=== PATIENT | male | born 1960 | race Caucasian/White ===

== ENCOUNTER 2017-02-27 04:52 | Inpatient (IN) | payer BC ==
[~2017-02-27] VITALS: Ht 182.9 cm; Wt 81.2 kg
[2017-02-27] MEDS ORDERED: IV NORMAL SALINE 1000ML BAG 1,000 ML IV ONE (05:45)
[2017-02-27] MEDS ORDERED: ONDANSETRON PF 4 MG/2 ML VIAL. IV ONE (05:45)
[2017-02-27] MEDS ORDERED: HYDROmorphone 2 MG/ML VIAL IV ONE (05:45)
[2017-02-27] MEDS ORDERED: AMPICILLIN/SULBACTAM 3 GM in IV NORMAL SALINE 100ML 100 ML IV ONE (06:00)
[2017-02-27 06:11] LABS: BASO # 0.1 x10^3/uL (0.0-0.2); BASO % 1 % (0-3); EOS % 1 % (0-3); HEMATOCRIT 45.9 % (39.0-53.0); HEMOGLOBIN 16.3 g/dL (13.0-17.5); LYMPH # 1.2 x10^3/uL (1.0-4.8); LYMPH % 16 % (24-48); MEAN CORPUSCULAR HEMOGLOBIN 36 pg (25-35); MEAN CORPUSCULAR HGB CONC 35 g/dL (31-37); MEAN CORPUSCULAR VOLUME 100 fL (79-100); MONO % 10 % (0-9); NEUT % 72 % (31-73); PLATELET COUNT 186 x10^3/uL (140-400); RED BLOOD COUNT 4.57 x10^6/uL (4.30-5.70); RED CELL DISTRIBUTION WIDTH 13.5 % (11.5-14.5); WHITE BLOOD COUNT 7.8 x10^3/uL (4.0-11.0)
[2017-02-27] MEDS ORDERED: CONTRAST GIVEN MC PRN (06:15)
[2017-02-27] MEDS ORDERED: IOHEXOL 300 MG/ML 75 ML VIAL IV ONE (06:15)
[2017-02-27 06:20] LABS: CALCIUM 9.4 mg/dL (8.5-10.1); GFR 78.2; POTASSIUM 3.3 mmol/L (3.5-5.1)
[2017-02-27 06:25] LABS: ALBUMIN 3.8 g/dL (3.4-5.0); TOTAL BILIRUBIN 0.8 mg/dL (0.2-1.0); TOTAL PROTEIN 7.7 g/dL (6.4-8.2)
[2017-02-27] MEDS ORDERED: ONDANSETRON PF 4 MG/2 ML VIAL. IV PRN ×3 (06:30→09:00)
[2017-02-27] MEDS ORDERED: MORPHINE SULFATE 2 MG/ML DISP.SYRIN. IV PRN ×2 (06:30→09:00)
--- NOTE | 2017-02-27 06:41 | PHYS DOC ---
Past Medical History Past Medical History: Hypertension Past Surgical History: Other Additional Past Surgical Histo: BI LAT KNEES, HANDS, FEET, LT ARM, RT ANKLE, FACIAL Alcohol Use: Heavy Additional Information: PT STATES THAT HE NORMALLY DRINKS 2-3 MIXED DRINKS A DAY AND A BEER WITH DINNER. Drug Use: None Adult General Chief Complaint Chief Complaint: RECTAL ABSCESS HPI HPI 55-year-old male presenting to the emergency department today after having a pain and fullness in his rectum for the past 3 days. He reports the pain that is mild to moderate intermittent nonradiating and without alleviating factors. He reports straining with defecation. He denies any blood in his stool. He denies fevers at home. Review of systems is negative for abdominal pain nausea vomiting diarrhea fevers or chills. All other review of systems is negative unless otherwise noted in history of present illness. ED course: 55-year-old gentleman presenting to the emergency department today with a rectal abscess. Vital signs show mild chronic hypertension otherwise unremarkable. Afebrile. Pertinent physical examination findings show the patient have a fullness of the rectum consistent with a rectal abscess. The patient was given IV antibiotics. I discussed the case with Dr. Ventura our surgeon who agreed to see the patient in consultation. The patient was admitted to our hospital for further evaluation workup and care. Review of Systems Review of Systems SEE ABOVE. Current Medications Current Medications Current Medications Medications (Trade) Dose Ordered Sig/Herson Start Time Stop Time Status Last Admin Dose Admin Ampicillin Sodium/ Sulbactam Sodium 3 gm/Sodium Chloride 100 ml @ 200 mls/hr 1X ONCE 02/27/17 06:00 02/27/17 06:29 DC 02/27/17 06:06 200 MLS/HR Hydromorphone HCl (Dilaudid) 1 mg 1X ONCE 02/27/17 05:45 02/27/17 05:46 DC 02/27/17 06:06 1 MG Info (Do NOT chart on this entry -- for MONITORING) 1 each PRN DAILY PRN 02/27/17 06:15 03/01/17 06:14 Iohexol (Omnipaque 300 Mg/ml) 75 ml 1X ONCE 02/27/17 06:15 02/27/17 06:16 DC Ondansetron HCl (Zofran) 4 mg 1X ONCE 02/27/17 05:45 02/27/17 05:46 DC 02/27/17 06:06 4 MG Sodium Chloride 1,000 ml @ 1,000 mls/hr 1X ONCE 02/27/17 05:45 02/27/17 06:44 02/27/17 06:07 1,000 MLS/HR Allergies Allergies Allergies Coded Allergies Type Severity Reaction Last Updated Verified peanut Allergy Unknown 02/27/17 Yes Physical Exam Physical Exam SEE ABOVE Constitutional: Well developed, well nourished, no acute distress, non-toxic appearance. [] HENT: Normocephalic, atraumatic, bilateral external ears normal, oropharynx moist, no oral exudates, nose normal. [] Eyes: PERRLA, EOMI, conjunctiva normal, no discharge. [] Neck: Normal range of motion, no tenderness, supple, no stridor. [] Cardiovascular:Heart rate regular rhythm, no murmur [] Lungs & Thorax: Bilateral breath sounds clear to auscultation [] Abdomen: Bowel sounds normal, soft, no tenderness, no masses, no pulsatile masses. Rectal exam, the patient has severe tenesmus and pain on rectal exam with a fullness of the rectum. Consistent with abscess with rectal involvement. Nonbloody stool. Skin: Warm, dry, no erythema, no rash. [] Back: No tenderness, no CVA tenderness. [] Extremities: No tenderness, no cyanosis, no clubbing, ROM intact, no edema. [] Neurologic: Alert and oriented X 3, normal motor function, normal sensory function, no focal deficits noted. [] Psychologic: Affect normal, judgement normal, mood normal. [] Current Patient Data Vital Signs Vital Signs Date Time Temp Pulse Resp B/P (MAP) Pulse Ox O2 Delivery O2 Flow Rate FiO2 02/27/17 06:06 18 Room Air 02/27/17 06:00 69 126/79 (95) 96 02/27/17 04:58 97.9 97.9 Lab Values Laboratory Tests Test 02/27/17 05:45 White Blood Count 7.8 x10^3/uL (4.0-11.0) Red Blood Count 4.57 x10^6/uL (4.30-5.70) Hemoglobin 16.3 g/dL (13.0-17.5) Hematocrit 45.9 % (39.0-53.0) Mean Corpuscular Volume 100 fL (79-100) Mean Corpuscular Hemoglobin 36 pg (25-35) H Mean Corpuscular Hemoglobin Concent 35 g/dL (31-37) Red Cell Distribution Width 13.5 % (11.5-14.5) Platelet Count 186 x10^3/uL (140-400) Neutrophils (%) (Auto) 72 % (31-73) Lymphocytes (%) (Auto) 16 % (24-48) L Monocytes (%) (Auto) 10 % (0-9) H Eosinophils (%) (Auto) 1 % (0-3) Basophils (%) (Auto) 1 % (0-3) Neutrophils # (Auto) 5.6 x10^3uL (1.8-7.7) Lymphocytes # (Auto) 1.2 x10^3/uL (1.0-4.8) Monocytes # (Auto) 0.8 x10^3/uL (0.0-1.1) Eosinophils # (Auto) 0.1 x10^3/uL (0.0-0.7) Basophils # (Auto) 0.1 x10^3/uL (0.0-0.2) Laboratory Tests 02/27/17 05:45 EKG EKG [] Radiology/Procedures Radiology/Procedures [] Course & Med Decision Making Course & Med Decision Making Pertinent Labs and Imaging studies reviewed. (See chart for details) [] Dragon Disclaimer Dragon Disclaimer This electronic medical record was generated, in whole or in part, using a voice recognition dictation system. Departure Departure Impression: Primary Impression: Rectal abscess Disposition: ADMITTED INPATIENT Admitting Physician: Carlos Lyn Condition: STABLE Referrals: NO PCP (PCP) JAMES CALHOUN MD Feb 27, 2017 06:41
--- NOTE | 2017-02-27 07:35 | RAD ---
Indication right anal pain going into the low back. Assess for potential abscess. Axial images through the abdomen and pelvis were obtained. Approximately 75 cc of Omnipaque 300 was administered intravenously. No oral contrast was administered. No prior imaging is available. The lung bases are clear. The liver and spleen appear normal and the gallbladder appears grossly unremarkable. No pancreatic abnormality is seen. No adrenal or renal anomalies are seen and acute finding in the abdomen is not apparent. In the pelvis no focal mass or inflammatory process is seen. Immediately adjacent to the right anal verge is a suggested soft tissue mass measuring approximately 3.5 x 3 cm. This may reflect an inflammatory focus, small abscess. Correlation with physical exam advised. Significant surrounding inflammatory changes are not seen in the immediately adjacent soft tissues. IMPRESSION: Suggested soft tissue mass adjacent to the right rectum which may reflect an abscess. No additional finding seen in the abdomen or pelvis.
[2017-02-27 08:06] VITALS: BP 138/81
[2017-02-27] MEDS ORDERED: ONDA4TAB12 PO (08:32)
[2017-02-27] MEDS ORDERED: AMOX500C PO (08:32)
[2017-02-27] MEDS ORDERED: METO50TA2 PO (08:32)
[2017-02-27] MEDS ORDERED: LISI-334 PO (08:32)
[2017-02-27] MEDS ORDERED: HYDROcodone/APAP 5/325MG 1 TAB TABLET PO PRN (08:45)
[2017-02-27] MEDS ORDERED: ACETAMINOPHEN 500 MG TABLET PO PRN (08:45)
[2017-02-27] MEDS ORDERED: IV RINGERS,LACTATED 1000ML 1,000 ML IV SCH (08:49)
[2017-02-27] MEDS ORDERED: LIDOCAINE 1% 1 ML SYRINGE. ID PRN (09:00)
[2017-02-27] MEDS ORDERED: fentaNYL PF VIAL 100 MCG/2 ML VIAL IV PRN (09:00)
[2017-02-27] MEDS: LISINOPRIL 20 MG TABLET PO SCH (09:00)
[2017-02-27] MEDS ORDERED: PROCHLORPERAZINE 10 MG/2 ML VIAL. IV PRN (09:00)
[2017-02-27] MEDS ORDERED: AMPICILLIN/SULBACTAM 1.5 GM in IV NORMAL SALINE 50ML 50 ML IV SCH (09:00)
--- NOTE | 2017-02-27 09:44 | PDOC2 ---
SOMMER CARPENTER CH[employer]NAGEMENT LEAD 02/27/17 0944: CONSULT Date of Consult Date of Consult DATE: 02/27/17 TIME: 09:36 Reason for Consult Reason for Consult: rectal abscess Referring Physician Referring Physician: ER Identification/Chief Complaint Chief Complaint rectal pain Problems: Source Source: Chart review, Patient History of Present Illness Reason for Visit: 4-5 day history of rectal pain, denies drainage. yesterday the pain was better , then had BM and extreme pain again. No history of abscess in past Currently on augmentin for dental implant procedure planned Past Medical History Cardiovascular: HTN Past Surgical History Past Surgical History: Other (mulitple bone/joint surgeries ) Family History Family History: Other (noncontributory to current illness ) Social History <1 pack per day ALCOHOL: heavy Drugs: None Lives: with Family Current Medications Current Medications Current Medications Ondansetron HCl (Zofran) 4 mg 1X ONCE IV Last administered on 02/27/17 06:06 ; Start 02/27/17 at 05:45; Stop 02/27/17 at 05:46; Status DC Hydromorphone HCl (Dilaudid) 1 mg 1X ONCE IV Last administered on 02/27/17 06 :06; Start 02/27/17 at 05:45; Stop 02/27/17 at 05:46; Status DC Sodium Chloride 1,000 ml @ 1,000 mls/hr 1X ONCE IV Last administered on 06:07; Start 02/27/17 at 05:45; Stop 02/27/17 at 06:44; Status DC Ampicillin Sodium/ Sulbactam Sodium 3 gm/Sodium Chloride 100 ml @ 200 mls/hr 1X ONCE IV Last administered on 02/27/17 06:06; Start 02/27/17 at 06:00; Stop 02/27/17 at 06:29; Status DC Iohexol (Omnipaque 300 Mg/ml) 75 ml 1X ONCE IV Last administered on 02/27/17 06:54; Start 02/27/17 at 06:15; Stop 02/27/17 at 06:16; Status DC Info (Do NOT chart on this entry -- for MONITORING) 1 each PRN DAILY PRN MC SEE COMMENTS; Start 02/27/17 at 06:15; Stop 03/01/17 at 06:14 Ondansetron HCl (Zofran) 4 mg PRN Q8HRS PRN IV NAUSEA/VOMITING; Start 02/27/17 at 06:30; Stop 02/27/17 at 08:38; Status DC Morphine Sulfate 2 mg PRN Q2HR PRN IV PAIN; Start 02/27/17 at 06:30; Stop 02/28 at 06:29 Sodium Chloride 1,000 ml @ 125 mls/hr Q8H IV ; Start 02/27/17 at 06:30; Stop at 06:29 Ondansetron HCl (Zofran) 4 mg PRN Q6HRS PRN IV NAUSEA/VOMITING; Start 02/27/17 at 08:34; Stop 02/28/17 at 08:33 Acetaminophen (Tylenol) 500 mg PRN Q6HRS PRN PO MILD PAIN / TEMP; Start at 08:45 Ampicillin Sodium/ Sulbactam Sodium 1.5 gm/Sodium Chloride 50 ml @ 100 mls/hr Q6H IV ; Start 02/27/17 at 09:00 Acetaminophen/ Hydrocodone Bitart (Lortab 5/325) 1 tab PRN Q4HRS PRN PO PAIN; Start 02/27/17 at 08:45 Lisinopril (Prinivil) 20 mg DAILY PO ; Start 02/27/17 at 09:00 Metoprolol Tartrate (Lopressor) 50 mg BID PO ; Start 02/27/17 at 09:00 Ondansetron HCl (Zofran) 4 mg PRN Q6HRS PRN IV NAUSEA/VOMITING; Start 02/27/17 at 09:00; Stop 02/27/17 at 19:00 Fentanyl Citrate (Fentanyl 2ml Vial) 25 mcg PRN Q5MIN PRN IV MILD PAIN; Start 02/27/17 at 09:00; Stop 02/27/17 at 19:00 Fentanyl Citrate (Fentanyl 2ml Vial) 50 mcg PRN Q5MIN PRN IV MODERATE PAIN; Start 02/27/17 at 09:00; Stop 02/27/17 at 19:00 Morphine Sulfate 1 mg PRN Q10MIN PRN IV SEVERE PAIN; Start 02/27/17 at 09:00; Stop 02/27/17 at 19:00 Ringer's Solution 1,000 ml @ 30 mls/hr Q24H IV ; Start 02/27/17 at 08:49; Stop 02/27/17 at 20:48 Lidocaine HCl 2 ml PRN 1X PRN ID PRIOR TO IV START; Start 02/27/17 at 09:00; Stop 02/27/17 at 19:00 Hydromorphone HCl (Dilaudid) 0.5 mg PRN Q10MIN PRN IV SEV PAIN, Second choice; Start 02/27/17 at 09:00; Stop 02/27/17 at 19:00 Prochlorperazine Edisylate (Compazine) 5 mg PACU PRN PRN IV NAUSEA, MRX1; Start 02/27/17 at 09:00; Stop 02/27/17 at 19:00 Active Scripts Active Reported Ondansetron Odt (Ondansetron) 4 Mg Tab.rapdis 8 Mg PO TID PRN Amoxicillin 500 Mg Capsule 1 Cap PO BID Metoprolol Tartrate 50 Mg Tablet 1 Tab PO BID Lisinopril 20 Mg Tablet 1 Tab PO DAILY Allergies Allergies: Coded Allergies: peanut (Verified Allergy, Unknown, 02/27/17) ROS General: YES: Chills, Other (+ fevers subjective) PSYCHOLOGICAL ROS: No: Anxiety, Depression Eyes: No Blurry vision, No Double vision HEENT: No: Heacaches, Sore Throat Hematological and Lymphatic: No: Bleeding Problems, Blood Clots Respiratory: No: Cough, Shortness of breath Cardiovascular: No Chest Pain, No Palpitations Gastrointestinal: Yes Constipation, No Abdominal Pain Genitourinary: No Frequency, No Hematuria Musculoskeletal: No Joint Pain, No Muscle Pain Neurological: No Impaired Coord/balance, No Seizures Skin: No Pruritus, No Rash Physical Exam Physical Exam limited rectal exam--patient very tender with mild palpation to right rectal area--did not examine in depth due to pain , some fullness noted to right rectal area--no induration or erythema General: Alert, Oriented X3, Cooperative, No acute distress HEENT: PERRLA, Mucous membr. moist/pink Heart: Regular rate, Normal S1, Normal S2 Abdomen: Soft, No tenderness Extremities: No clubbing, No cyanosis Skin: No rashes, No breakdown Neuro: Normal speech, Sensation intact Psych/Mental Status: Mental status NL, Mood NL MUSCULOSKELETAL: No deformity, No swelling Vitals VITALS Vital Signs Date Time Temp Pulse Resp B/P (MAP) Pulse Ox O2 Delivery O2 Flow Rate FiO2 02/27/17 08:33 Room Air 02/27/17 08:06 98.1 70 18 138/81 (100) 97 98.1 Labs Labs Laboratory Tests Test 02/27/17 05:45 White Blood Count 7.8 x10^3/uL (4.0-11.0) Red Blood Count 4.57 x10^6/uL (4.30-5.70) Hemoglobin 16.3 g/dL (13.0-17.5) Hematocrit 45.9 % (39.0-53.0) Mean Corpuscular Volume 100 fL (79-100) Mean Corpuscular Hemoglobin 36 pg (25-35) Mean Corpuscular Hemoglobin Concent 35 g/dL (31-37) Red Cell Distribution Width 13.5 % (11.5-14.5) Platelet Count 186 x10^3/uL (140-400) Neutrophils (%) (Auto) 72 % (31-73) Lymphocytes (%) (Auto) 16 % (24-48) Monocytes (%) (Auto) 10 % (0-9) Eosinophils (%) (Auto) 1 % (0-3) Basophils (%) (Auto) 1 % (0-3) Neutrophils # (Auto) 5.6 x10^3uL (1.8-7.7) Lymphocytes # (Auto) 1.2 x10^3/uL (1.0-4.8) Monocytes # (Auto) 0.8 x10^3/uL (0.0-1.1) Eosinophils # (Auto) 0.1 x10^3/uL (0.0-0.7) Basophils # (Auto) 0.1 x10^3/uL (0.0-0.2) Sodium Level 139 mmol/L (136-145) Potassium Level 3.3 mmol/L (3.5-5.1) Chloride Level 100 mmol/L (98-107) Carbon Dioxide Level 27 mmol/L (21-32) Anion Gap 12 (6-14) Blood Urea Nitrogen 15 mg/dL (8-26) Creatinine 1.0 mg/dL (0.7-1.3) Estimated GFR (Cockcroft-Gault) 78.2 BUN/Creatinine Ratio 15 (6-20) Glucose Level 110 mg/dL (70-99) Lactic Acid Level 1.8 mmol/L (0.4-2.0) Calcium Level 9.4 mg/dL (8.5-10.1) Total Bilirubin 0.8 mg/dL (0.2-1.0) Aspartate Amino Transf (AST/SGOT) 28 U/L (15-37) Alanine Aminotransferase (ALT/SGPT) 43 U/L (16-63) Alkaline Phosphatase 90 U/L (46-116) Total Protein 7.7 g/dL (6.4-8.2) Albumin 3.8 g/dL (3.4-5.0) Albumin/Globulin Ratio 1.0 (1.0-1.7) Laboratory Tests Test 02/27/17 05:45 White Blood Count 7.8 x10^3/uL (4.0-11.0) Red Blood Count 4.57 x10^6/uL (4.30-5.70) Hemoglobin 16.3 g/dL (13.0-17.5) Hematocrit 45.9 % (39.0-53.0) Mean Corpuscular Volume 100 fL (79-100) Mean Corpuscular Hemoglobin 36 pg (25-35) Mean Corpuscular Hemoglobin Concent 35 g/dL (31-37) Red Cell Distribution Width 13.5 % (11.5-14.5) Platelet Count 186 x10^3/uL (140-400) Neutrophils (%) (Auto) 72 % (31-73) Lymphocytes (%) (Auto) 16 % (24-48) Monocytes (%) (Auto) 10 % (0-9) Eosinophils (%) (Auto) 1 % (0-3) Basophils (%) (Auto) 1 % (0-3) Neutrophils # (Auto) 5.6 x10^3uL (1.8-7.7) Lymphocytes # (Auto) 1.2 x10^3/uL (1.0-4.8) Monocytes # (Auto) 0.8 x10^3/uL (0.0-1.1) Eosinophils # (Auto) 0.1 x10^3/uL (0.0-0.7) Basophils # (Auto) 0.1 x10^3/uL (0.0-0.2) Sodium Level 139 mmol/L (136-145) Potassium Level 3.3 mmol/L (3.5-5.1) Chloride Level 100 mmol/L (98-107) Carbon Dioxide Level 27 mmol/L (21-32) Anion Gap 12 (6-14) Blood Urea Nitrogen 15 mg/dL (8-26) Creatinine 1.0 mg/dL (0.7-1.3) Estimated GFR (Cockcroft-Gault) 78.2 BUN/Creatinine Ratio 15 (6-20) Glucose Level 110 mg/dL (70-99) Lactic Acid Level 1.8 mmol/L (0.4-2.0) Calcium Level 9.4 mg/dL (8.5-10.1) Total Bilirubin 0.8 mg/dL (0.2-1.0) Aspartate Amino Transf (AST/SGOT) 28 U/L (15-37) Alanine Aminotransferase (ALT/SGPT) 43 U/L (16-63) Alkaline Phosphatase 90 U/L (46-116) Total Protein 7.7 g/dL (6.4-8.2) Albumin 3.8 g/dL (3.4-5.0) Albumin/Globulin Ratio 1.0 (1.0-1.7) Assessment/Plan Assessment/Plan rectal pain, CT with mass vs abscess--very tender on exam tobaccoism, alcohol use daily reviewed with lolis Curtis EUA, possible I&D YAEL CORBIN MD 02/27/17 1317: CONSULT Allergies Allergies: Coded Allergies: peanut (Verified Allergy, Unknown, 02/27/17) Assessment/Plan Assessment/Plan pt seen, interviewed and examined agree with above to OR for I&D explained risks to Catrachito and his including but not limited to bleeding, infection or recurrence. he edwin proceed Thanks for consult SOMMER CARPENTER APRN Feb 27, 2017 09:44 YAEL CORBIN MD Feb 27, 2017 13:17
[2017-02-27] MEDS: METOPROLOL TART IMMED RELEASE 50 MG TABLET. PO SCH ×2 (10:06→19:44)
[2017-02-27] MEDS: IV NORMAL SALINE 1000ML BAG 1,000 ML IV SCH ×3 (10:07→23:50)
--- NOTE | 2017-02-27 10:47 | PDOC1 ---
History and Physical Date of Admission Date of Admission DATE: 02/27/17 TIME: 10:41 Identification/Chief Complaint Chief Complaint rectal pain Problems: Source Source: Caregiver, Chart review, Patient History of Present Illness History of Present Illness 55 y.o male with no signif past medical, 4-5 day hx rectal pain, no drainage, admits to constipation. Rectal abscess on PE and on CT. GS consulted, planned for drainage, AHs been taking amox (i thought initially for rectal but now notes about dental implant),. Got unasyn at ER, reviewed lit, can do unasyn, flagyl, clinda are some options, Denies fever. NOrmal white ct K slightly low at 3.3 Past Medical History Cardiovascular: HTN Past Surgical History Past Surgical History: Other (mulitple bone/joint surgeries ) Family History Family History: Hypertension, Other (noncontributory to current illness ) Social History Smoke: No ALCOHOL: none Drugs: None Current Medications Current Medications Current Medications Ondansetron HCl (Zofran) 4 mg 1X ONCE IV Last administered on 02/27/17 06:06 ; Start 02/27/17 at 05:45; Stop 02/27/17 at 05:46; Status DC Hydromorphone HCl (Dilaudid) 1 mg 1X ONCE IV Last administered on 02/27/17 06 :06; Start 02/27/17 at 05:45; Stop 02/27/17 at 05:46; Status DC Sodium Chloride 1,000 ml @ 1,000 mls/hr 1X ONCE IV Last administered on 06:07; Start 02/27/17 at 05:45; Stop 02/27/17 at 06:44; Status DC Ampicillin Sodium/ Sulbactam Sodium 3 gm/Sodium Chloride 100 ml @ 200 mls/hr 1X ONCE IV Last administered on 02/27/17 06:06; Start 02/27/17 at 06:00; Stop 02/27/17 at 06:29; Status DC Iohexol (Omnipaque 300 Mg/ml) 75 ml 1X ONCE IV Last administered on 02/27/17 06:54; Start 02/27/17 at 06:15; Stop 02/27/17 at 06:16; Status DC Info (Do NOT chart on this entry -- for MONITORING) 1 each PRN DAILY PRN MC SEE COMMENTS; Start 02/27/17 at 06:15; Stop 03/01/17 at 06:14 Ondansetron HCl (Zofran) 4 mg PRN Q8HRS PRN IV NAUSEA/VOMITING; Start 02/27/17 at 06:30; Stop 02/27/17 at 08:38; Status DC Morphine Sulfate 2 mg PRN Q2HR PRN IV PAIN; Start 02/27/17 at 06:30; Stop 02/28 at 06:29 Sodium Chloride 1,000 ml @ 125 mls/hr Q8H IV Last administered on 02/27/17 10 :07; Start 02/27/17 at 06:30; Stop 02/28/17 at 06:29 Ondansetron HCl (Zofran) 4 mg PRN Q6HRS PRN IV NAUSEA/VOMITING; Start 02/27/17 at 08:34; Stop 02/28/17 at 08:33 Acetaminophen (Tylenol) 500 mg PRN Q6HRS PRN PO MILD PAIN / TEMP; Start at 08:45 Ampicillin Sodium/ Sulbactam Sodium 1.5 gm/Sodium Chloride 50 ml @ 100 mls/hr Q6H IV ; Start 02/27/17 at 09:00; Stop 02/27/17 at 09:51; Status DC Acetaminophen/ Hydrocodone Bitart (Lortab 5/325) 1 tab PRN Q4HRS PRN PO PAIN; Start 02/27/17 at 08:45 Lisinopril (Prinivil) 20 mg DAILY PO ; Start 02/27/17 at 09:00 Metoprolol Tartrate (Lopressor) 50 mg BID PO Last administered on 02/27/17 10: 06; Start 02/27/17 at 09:00 Ondansetron HCl (Zofran) 4 mg PRN Q6HRS PRN IV NAUSEA/VOMITING; Start 02/27/17 at 09:00; Stop 02/27/17 at 19:00 Fentanyl Citrate (Fentanyl 2ml Vial) 25 mcg PRN Q5MIN PRN IV MILD PAIN; Start 02/27/17 at 09:00; Stop 02/27/17 at 19:00 Fentanyl Citrate (Fentanyl 2ml Vial) 50 mcg PRN Q5MIN PRN IV MODERATE PAIN; Start 02/27/17 at 09:00; Stop 02/27/17 at 19:00 Morphine Sulfate 1 mg PRN Q10MIN PRN IV SEVERE PAIN; Start 02/27/17 at 09:00; Stop 02/27/17 at 19:00 Ringer's Solution 1,000 ml @ 30 mls/hr Q24H IV ; Start 02/27/17 at 08:49; Stop 02/27/17 at 20:48 Lidocaine HCl 2 ml PRN 1X PRN ID PRIOR TO IV START; Start 02/27/17 at 09:00; Stop 02/27/17 at 19:00 Hydromorphone HCl (Dilaudid) 0.5 mg PRN Q10MIN PRN IV SEV PAIN, Second choice; Start 02/27/17 at 09:00; Stop 02/27/17 at 19:00 Prochlorperazine Edisylate (Compazine) 5 mg PACU PRN PRN IV NAUSEA, MRX1; Start 02/27/17 at 09:00; Stop 02/27/17 at 19:00 Ampicillin Sodium/ Sulbactam Sodium 1.5 gm/Sodium Chloride 50 ml @ 100 mls/hr Q6H IV ; Start 02/27/17 at 12:00 Active Scripts Active Reported Ondansetron Odt (Ondansetron) 4 Mg Tab.rapdis 8 Mg PO TID PRN Amoxicillin 500 Mg Capsule 1 Cap PO BID Metoprolol Tartrate 50 Mg Tablet 1 Tab PO BID Lisinopril 20 Mg Tablet 1 Tab PO DAILY Allergies Allergies: Coded Allergies: peanut (Verified Allergy, Unknown, 02/27/17) ROS Review of System rectal pain, all else is neg Physical Exam General: Alert, Oriented X3, Cooperative, No acute distress HEENT: PERRLA Lungs: Clear to auscultation, Normal air movement Heart: S1S2, RRR, no thrills, no rubs Cardiovascular: S1, S2 Abdomen: Normal bowel sounds, Soft, No tenderness, No hepatosplenomegaly, No masses Male Genitals Exam: other (tender fluctaunt area near rectum,, ) Rectal Exam: other (as above) PELVIC: Nml ext genitalia Extremities: No clubbing, No cyanosis, No edema, Normal pulses, No tenderness/ swelling Neuro: Normal gait, Normal speech, Strength at 5/5 X4 ext, Normal tone, Sensation intact, Cranial nerves 3-12 NL, Reflexes 2+ Psych/Mental Status: Mental status NL, Mood NL Vitals Vitals Vital Signs Date Time Temp Pulse Resp B/P (MAP) Pulse Ox O2 Delivery O2 Flow Rate FiO2 02/27/17 10:06 70 138/81 02/27/17 08:33 Room Air 02/27/17 08:06 98.1 18 97 98.1 Labs Labs Laboratory Tests Test 02/27/17 05:45 White Blood Count 7.8 x10^3/uL (4.0-11.0) Red Blood Count 4.57 x10^6/uL (4.30-5.70) Hemoglobin 16.3 g/dL (13.0-17.5) Hematocrit 45.9 % (39.0-53.0) Mean Corpuscular Volume 100 fL (79-100) Mean Corpuscular Hemoglobin 36 pg (25-35) Mean Corpuscular Hemoglobin Concent 35 g/dL (31-37) Red Cell Distribution Width 13.5 % (11.5-14.5) Platelet Count 186 x10^3/uL (140-400) Neutrophils (%) (Auto) 72 % (31-73) Lymphocytes (%) (Auto) 16 % (24-48) Monocytes (%) (Auto) 10 % (0-9) Eosinophils (%) (Auto) 1 % (0-3) Basophils (%) (Auto) 1 % (0-3) Neutrophils # (Auto) 5.6 x10^3uL (1.8-7.7) Lymphocytes # (Auto) 1.2 x10^3/uL (1.0-4.8) Monocytes # (Auto) 0.8 x10^3/uL (0.0-1.1) Eosinophils # (Auto) 0.1 x10^3/uL (0.0-0.7) Basophils # (Auto) 0.1 x10^3/uL (0.0-0.2) Sodium Level 139 mmol/L (136-145) Potassium Level 3.3 mmol/L (3.5-5.1) Chloride Level 100 mmol/L (98-107) Carbon Dioxide Level 27 mmol/L (21-32) Anion Gap 12 (6-14) Blood Urea Nitrogen 15 mg/dL (8-26) Creatinine 1.0 mg/dL (0.7-1.3) Estimated GFR (Cockcroft-Gault) 78.2 BUN/Creatinine Ratio 15 (6-20) Glucose Level 110 mg/dL (70-99) Lactic Acid Level 1.8 mmol/L (0.4-2.0) Calcium Level 9.4 mg/dL (8.5-10.1) Total Bilirubin 0.8 mg/dL (0.2-1.0) Aspartate Amino Transf (AST/SGOT) 28 U/L (15-37) Alanine Aminotransferase (ALT/SGPT) 43 U/L (16-63) Alkaline Phosphatase 90 U/L (46-116) Total Protein 7.7 g/dL (6.4-8.2) Albumin 3.8 g/dL (3.4-5.0) Albumin/Globulin Ratio 1.0 (1.0-1.7) Laboratory Tests Test 02/27/17 05:45 White Blood Count 7.8 x10^3/uL (4.0-11.0) Red Blood Count 4.57 x10^6/uL (4.30-5.70) Hemoglobin 16.3 g/dL (13.0-17.5) Hematocrit 45.9 % (39.0-53.0) Mean Corpuscular Volume 100 fL (79-100) Mean Corpuscular Hemoglobin 36 pg (25-35) Mean Corpuscular Hemoglobin Concent 35 g/dL (31-37) Red Cell Distribution Width 13.5 % (11.5-14.5) Platelet Count 186 x10^3/uL (140-400) Neutrophils (%) (Auto) 72 % (31-73) Lymphocytes (%) (Auto) 16 % (24-48) Monocytes (%) (Auto) 10 % (0-9) Eosinophils (%) (Auto) 1 % (0-3) Basophils (%) (Auto) 1 % (0-3) Neutrophils # (Auto) 5.6 x10^3uL (1.8-7.7) Lymphocytes # (Auto) 1.2 x10^3/uL (1.0-4.8) Monocytes # (Auto) 0.8 x10^3/uL (0.0-1.1) Eosinophils # (Auto) 0.1 x10^3/uL (0.0-0.7) Basophils # (Auto) 0.1 x10^3/uL (0.0-0.2) Sodium Level 139 mmol/L (136-145) Potassium Level 3.3 mmol/L (3.5-5.1) Chloride Level 100 mmol/L (98-107) Carbon Dioxide Level 27 mmol/L (21-32) Anion Gap 12 (6-14) Blood Urea Nitrogen 15 mg/dL (8-26) Creatinine 1.0 mg/dL (0.7-1.3) Estimated GFR (Cockcroft-Gault) 78.2 BUN/Creatinine Ratio 15 (6-20) Glucose Level 110 mg/dL (70-99) Lactic Acid Level 1.8 mmol/L (0.4-2.0) Calcium Level 9.4 mg/dL (8.5-10.1) Total Bilirubin 0.8 mg/dL (0.2-1.0) Aspartate Amino Transf (AST/SGOT) 28 U/L (15-37) Alanine Aminotransferase (ALT/SGPT) 43 U/L (16-63) Alkaline Phosphatase 90 U/L (46-116) Total Protein 7.7 g/dL (6.4-8.2) Albumin 3.8 g/dL (3.4-5.0) Albumin/Globulin Ratio 1.0 (1.0-1.7) VTE Prophylaxis Ordered VTE Prophylaxis Devices: Yes VTE Pharmacological Prophylaxi: Yes Assessment/Plan Assessment/Plan 1. Rectal abscess 2. HTN, controlled 3. HYpokalemia , mild PLAN: I continued unasyn started at ER Can add flagyl too NPO IVF I and D later of rectal abscess Resume home meds Replace K Dw pt and RADHA PHELANE Jone Feb 27, 2017 10:47
[2017-02-27 10:54] VITALS: BP 112/75
[2017-02-27] MEDS ORDERED: MIDAZOLAM HCL/PF 2 MG/2 ML VIAL. ONE (11:05)
[2017-02-27] MEDS ORDERED: DEXAMETHASONE SOD PHOS 20 MG/5 ML VIAL. ONE (11:05)
[2017-02-27] MEDS ORDERED: PROPOFOL 20 ML IV ONE (11:05)
[2017-02-27] MEDS ORDERED: LIDOCAINE 2% PF Vial for OR 5 ML VIAL. ONE (11:05)
[2017-02-27] MEDS ORDERED: ONDANSETRON PF 4 MG/2 ML VIAL. ONE (11:05)
[2017-02-27] MEDS ORDERED: fentaNYL PF VIAL 100 MCG/2 ML VIAL ONE ×5 (11:06→15:01)
[2017-02-27] MEDS ORDERED: SEVOFLURANE 16 TO 30 MINUTES. IH ONE (13:21)
[2017-02-27] MEDS: AMPICILLIN/SULBACTAM 1.5 GM in IV NORMAL SALINE 50ML 50 ML IV SCH ×3 (13:45→23:52)
[2017-02-27] MEDS: fentaNYL PF VIAL 100 MCG/2 ML VIAL IV PRN ×4 (14:05→15:26)
[2017-02-27] MEDS ORDERED: HYDROmorphone 2 MG/ML VIAL ONE (14:39)
[2017-02-27] MEDS: HYDROmorphone 2 MG/ML VIAL IV PRN ×4 (14:40→15:15)
--- NOTE | 2017-02-27 14:46 | PDOC ---
BRIEF OPERATIVE NOTE Date: Feb 27, 2017 Pre-Op Diagnosis amanda-rectal abscess Post-Op Diagnosis same Procedure Performed I&D Surgeon Lorenzo Anesthesia Type: General Blood Loss 10cc IV Fluid 400cc Specimens Obtained cultures Findings abscess, 7-10:00 Complications none YAEL CORBIN MD Feb 27, 2017 14:46
[2017-02-27 15:42] VITALS: BP 138/80
[2017-02-27] MEDS: POTASSIUM CHLORIDE 10MEQ 100 ML IV SCH ×2 (15:50→19:47)
--- NOTE | 2017-02-27 16:43 | ACF ---
Admit Criteria Forms Admit Criteria Forms Admit Criteria Forms GASTROENTEROLOGY GRG Clinical Indications for Admission to Inpatient Care ([place]/ check or initial the applicable condition/criteria) Hospital admission is needed for appropriate care of the patient because of ANY ONE of the following: I. Suspected acute intra-abdominal process indicated by 1 or more of the following(1)(2)(3)(4)(5): a) Hemodynamic instability b) Peritoneal signs present (eg, abdominal rigidity, rebound tenderness, absent bowel sounds) c) Bowel obstruction suspected (eg, persistent vomiting, abdominal distention )(6)(7)(8) d) Suspected mesenteric ischemia or ischemic colitis(9)(10)(11) e) Other signs or symptoms of acute abdominal disease (eg, severe pain, free air)(12) II. Hemoperitoneum(13)(14) III. Ascites requiring acute treatment indicated by 1 or more of the following ( 15)(16)(17)(18) a) Hemodynamic instability b) Peritoneal signs present (e.g., abdominal rigidity, rebound tenderness, absent bowel sounds) c) Tachypnea, Hypoxemia,or other respiratory symptoms remain after emergency or observation level care (as appropriate) d) Suspected infected ascites as indicated by 1 or more of the following(19) (20) i) Fever ii) Vital sign abnormality iii) Abdominal pain or tenderness not relieved by paracentesis iv) Systemic signs of infection (e.g., elevated WBC count, fever) v) Ascitic fluid analysis consistent with infection ( e.g., elevated WBC count) IV. Severe liver disease indicated by 1 or more of the following (15)(16)(21)(22 )(23)(24)(25)(26)(27)(28) a) Acute hepatitis (e.g., transaminaselevel greater than 1000 IU/L) b) Acute elevation of prothrombintime to more than 50% above normal or INR greater than 1.5 c) Bilirubin greater than 20 mg/dL (342 micromoles/L) d) New-onset or worseninghepatic encephalopathy e) Acute elevation of serum ammonia level (eg, greater than 210 mcg/dL ( 150 micromoles/L)) f) Acute liver necrosis g) Vomiting that is severe of persistent h) Hemodynamic instability due to liver disease i) Acute renal failure j) Hepatic abscess k) Hepatic hydrothorax(29) l) Other indications of severe liver disease (e.g., persistent fever, ingestion of hepatotoxin)(30) V. Dehydration that is severe or persistent . Severe diarrhea indicated by 1 or more of the following (31)(32)(33)(34)(35 ) : a) High fever or other high-risk infection situation b) Intractable bloody diarrhea (e.g., more than 6 bloody stools per day) c) Suspected etiology (Clostridiumdifficile-associated diarrhea) that requires isolation or care not feasible in outpatient setting (36) d) Altered mental status that is severe or persistent e) Dehydration that is severe or persistent g) Peritoneal signs present (e.g., abdominal rigidity, rebound tenderness , absent bowel sounds) h) Abdominal ischemia suspected (9)(10)(11) i) Hemodynamic instability j) Severe electrolyte abnormalities requiring inpatient care k) Acute renal failure VII. Suspected toxic azra colon(4)(9) VIII. Severe dysphagia indicated by 1 or more of the following(37)(38) a) Suspected esophageal perforation or fistula(39) b) Suspected cause that requires inpatient care (e.g., caustic ingestion , severe esophagitis) (40)(41) c) Dehydration that is severe or persistent d) Inability to manage secretions or maintain hydration e) Hemodynamic instability f) Severe electrolyte abnormalities requiring inpatient care g) Acute renal failure IX. Vomiting and 1 or more of the following (42)(43)(44)(45)(46) a) High fever or other high-risk infection situation b) Altered mental status that is severe or persistent c) Dehydration that is severe or persistent d) Peritoneal signs present (e.g., abdominal rigidity, rebound tenderness, absent bowel sounds) e) Hemodynamic instability f) Severe electrolyte abnormalities requiring inpatient care g) Acute renal failure h) Bowel obstruction suspected (e.g., severe vomiting, abdominal distension) i) Vomiting that is severe or persistent X. Gastroparesis and 1 or more of the following(46)(47)(48)(49): a) Dehydration that is severe or persistent b) Severe electrolyte abnormalities requiring inpatient care c) Acute renal failure d) Vomiting that is severe or persistent XI Obstipation and 1 or more of the following(50)(51)(52)(53) a) Complication of fecal impaction (eg, stercoral ulceration, perforation, venous compression, obstructive uropathy) b) Fecal disimpaction by digital fragmentation or mechanical disimpaction unsuccessful XII Complication of gastrostomy or jejunostomy feeding tube(54)(55)(56) a) Luminal perforation b) Gastrocolonic fistula c) Cellulitis of surrounding area with failure of outpatient treatment d) Necrotizing fasciitis e) Peritonitis f) Gastric herniation or prolapse g) Ischemic necrosis of gastric wall ("buried bumper") h) Other complication of gastrostomy or jejunostomy unable to be resolved at lower level of care XII. Complications of transplanted liver indicated by 1 or more of the following (57)(58)(59): a) Acute graft rejection requiring inpatient management (eg, intravenous immuno suppression)(60)(61) b) Failure of transplanted liver as indicated by 1 or more of the following: i. Acute hepatitis (eg, transaminase level greater than 1000 International Units per liter (IU/L)) ii. Acute elevation of prothrombin time to more than 50% above baseline or INR greater than 1.5 iii. Bilirubin greater than 20 mg/dL (342 micromoles/L) iv. New-onset or worsening hepatic encephalopathy v. Acute elevation of serum ammonia level (eg, greater than 210 mcg/dL (150 micromoles/L)) vi. Acute liver necrosis c) Infection requiring inpatient management (eg, Hemodynamic instability, need for intravenous antimicrobial treatment) (62)(63)(64)(65)(66) d) Other complication of transplanted liver (eg, thrombosis, autoimmune hepatitis, variceal bleeding) requiring inpatient management (67)(68)(69) XII. Complications of transplanted pancreas indicated by 1 or more of the following (70) a) Acute graft rejection requiring inpatient management (eg, intravenous immunosuppression)(60)(71) b) Failure of transplanted pancreas as indicated by 1 or more of the following: i. Serum amylase greater than 3 times the upper limit of normal or baseline ii. Serum lipase greater than 3 times the upper limit of normal or baseline iii. Imaging findings consistent with pancreatic inflammation or necrosis c) Infection requiring inpatient management (eg, Hemodynamic instability, need for intravenous antimicrobial treatment) (64)(65)(66) d) Other complication of transplanted pancreas (eg, graft thrombosis, pancreatic duct stricture, anastomotic leak) requiring inpatient management (72 ) (X) XIII. Gastroenterology condition,Symptom or finding for which emergency and observation care have failed or are not considered appropriate.See General criteria: Observation care, General Admission criteria or Pediatric General Admission criteria guideline as appropriate. The original [facility] content created by [facility] has been revised. The portions of the content which have been revised are identified through the use of italic text or in bold,and [facility] has neither reviewed nor approved the modified material. All other unmodified content is copyright [facility]. Please see references footnoted in the original [facility] edition 2017 RADHAMES GAMBOA Feb 27, 2017 16:43
[2017-02-27 19:10] VITALS: BP 159/89
[2017-02-27] MEDS: DOCUSATE SODIUM 100 MG CAPSULE. PO SCH (19:43)
[2017-02-27] MEDS: oxyCODONE/APAP 5/325 1 TAB TABLET PO PRN (19:44)
[2017-02-27 23:00] VITALS: BP 128/80
[2017-02-28 03:17] VITALS: BP 154/95
[2017-02-28] MEDS: oxyCODONE/APAP 5/325 1 TAB TABLET PO PRN ×3 (03:31→13:27)
[2017-02-28] MEDS: AMPICILLIN/SULBACTAM 1.5 GM in IV NORMAL SALINE 50ML 50 ML IV SCH ×2 (05:47→12:00)
[2017-02-28 06:00] LABS: BASO % 1 % (0-3); EOS % 1 % (0-3); HEMOGLOBIN 14.6 g/dL (13.0-17.5); LYMPH % 14 % (24-48); MEAN CORPUSCULAR HEMOGLOBIN 36 pg (25-35); MEAN CORPUSCULAR HGB CONC 36 g/dL (31-37); MEAN CORPUSCULAR VOLUME 101 fL (79-100); MONO % 10 % (0-9); NEUT % 75 % (31-73); PLATELET COUNT 156 x10^3/uL (140-400); RED BLOOD COUNT 4.06 x10^6/uL (4.30-5.70); RED CELL DISTRIBUTION WIDTH 13.4 % (11.5-14.5); WHITE BLOOD COUNT 7.1 x10^3/uL (4.0-11.0)
[2017-02-28 06:22] LABS: CALCIUM 7.7 mg/dL (8.5-10.1); CREATININE 0.7 mg/dL (0.7-1.3); GFR 117.5; POTASSIUM 4.1 mmol/L (3.5-5.1)
[2017-02-28 07:00] VITALS: BP 161/100
[2017-02-28] MEDS: DOCUSATE SODIUM 100 MG CAPSULE. PO SCH (09:05)
[2017-02-28] MEDS: LISINOPRIL 20 MG TABLET PO SCH (09:05)
[2017-02-28] MEDS: METOPROLOL TART IMMED RELEASE 50 MG TABLET. PO SCH (09:06)
[2017-02-28 11:00] VITALS: BP 127/82
--- NOTE | 2017-02-28 12:04 | PDOC3 ---
Discharge Summary Visit Information Date of Admission: Feb 27, 2017 Date of Discharge: Feb 28, 2017 Admitting Diagnosis Comment: Rectal abscess s.p I and D Brief Hospital Course Allergies Allergies Coded Allergies Type Severity Reaction Last Updated Verified peanut Allergy Unknown 02/27/17 Yes Vital Signs Vital Signs Date Time Temp Pulse Resp B/P (MAP) Pulse Ox O2 Delivery O2 Flow Rate FiO2 02/28/17 11:00 98.1 77 19 127/82 (97) 98 Room Air 98.1 02/27/17 15:26 2.0 Lab Results Laboratory Tests Test 02/27/17 05:45 02/28/17 05:44 White Blood Count 7.8 x10^3/uL (4.0-11.0) 7.1 x10^3/uL (4.0-11.0) Red Blood Count 4.57 x10^6/uL (4.30-5.70) 4.06 x10^6/uL (4.30-5.70) Hemoglobin 16.3 g/dL (13.0-17.5) 14.6 g/dL (13.0-17.5) Hematocrit 45.9 % (39.0-53.0) 41.0 % (39.0-53.0) Mean Corpuscular Volume 100 fL (79-100) 101 fL (79-100) Mean Corpuscular Hemoglobin 36 pg (25-35) 36 pg (25-35) Mean Corpuscular Hemoglobin Concent 35 g/dL (31-37) 36 g/dL (31-37) Red Cell Distribution Width 13.5 % (11.5-14.5) 13.4 % (11.5-14.5) Platelet Count 186 x10^3/uL (140-400) 156 x10^3/uL (140-400) Neutrophils (%) (Auto) 72 % (31-73) 75 % (31-73) Lymphocytes (%) (Auto) 16 % (24-48) 14 % (24-48) Monocytes (%) (Auto) 10 % (0-9) 10 % (0-9) Eosinophils (%) (Auto) 1 % (0-3) 1 % (0-3) Basophils (%) (Auto) 1 % (0-3) 1 % (0-3) Neutrophils # (Auto) 5.6 x10^3uL (1.8-7.7) 5.4 x10^3uL (1.8-7.7) Lymphocytes # (Auto) 1.2 x10^3/uL (1.0-4.8) 1.0 x10^3/uL (1.0-4.8) Monocytes # (Auto) 0.8 x10^3/uL (0.0-1.1) 0.7 x10^3/uL (0.0-1.1) Eosinophils # (Auto) 0.1 x10^3/uL (0.0-0.7) 0.1 x10^3/uL (0.0-0.7) Basophils # (Auto) 0.1 x10^3/uL (0.0-0.2) 0.0 x10^3/uL (0.0-0.2) Sodium Level 139 mmol/L (136-145) 140 mmol/L (136-145) Potassium Level 3.3 mmol/L (3.5-5.1) 4.1 mmol/L (3.5-5.1) Chloride Level 100 mmol/L (98-107) 107 mmol/L (98-107) Carbon Dioxide Level 27 mmol/L (21-32) 26 mmol/L (21-32) Anion Gap 12 (6-14) 7 (6-14) Blood Urea Nitrogen 15 mg/dL (8-26) 10 mg/dL (8-26) Creatinine 1.0 mg/dL (0.7-1.3) 0.7 mg/dL (0.7-1.3) Estimated GFR (Cockcroft-Gault) 78.2 117.5 BUN/Creatinine Ratio 15 (6-20) Glucose Level 110 mg/dL (70-99) 95 mg/dL (70-99) Lactic Acid Level 1.8 mmol/L (0.4-2.0) Calcium Level 9.4 mg/dL (8.5-10.1) 7.7 mg/dL (8.5-10.1) Total Bilirubin 0.8 mg/dL (0.2-1.0) Aspartate Amino Transf (AST/SGOT) 28 U/L (15-37) Alanine Aminotransferase (ALT/SGPT) 43 U/L (16-63) Alkaline Phosphatase 90 U/L (46-116) Total Protein 7.7 g/dL (6.4-8.2) Albumin 3.8 g/dL (3.4-5.0) Albumin/Globulin Ratio 1.0 (1.0-1.7) Laboratory Tests Test 02/28/17 05:44 White Blood Count 7.1 x10^3/uL (4.0-11.0) Red Blood Count 4.06 x10^6/uL (4.30-5.70) Hemoglobin 14.6 g/dL (13.0-17.5) Hematocrit 41.0 % (39.0-53.0) Mean Corpuscular Volume 101 fL (79-100) Mean Corpuscular Hemoglobin 36 pg (25-35) Mean Corpuscular Hemoglobin Concent 36 g/dL (31-37) Red Cell Distribution Width 13.4 % (11.5-14.5) Platelet Count 156 x10^3/uL (140-400) Neutrophils (%) (Auto) 75 % (31-73) Lymphocytes (%) (Auto) 14 % (24-48) Monocytes (%) (Auto) 10 % (0-9) Eosinophils (%) (Auto) 1 % (0-3) Basophils (%) (Auto) 1 % (0-3) Neutrophils # (Auto) 5.4 x10^3uL (1.8-7.7) Lymphocytes # (Auto) 1.0 x10^3/uL (1.0-4.8) Monocytes # (Auto) 0.7 x10^3/uL (0.0-1.1) Eosinophils # (Auto) 0.1 x10^3/uL (0.0-0.7) Basophils # (Auto) 0.0 x10^3/uL (0.0-0.2) Sodium Level 140 mmol/L (136-145) Potassium Level 4.1 mmol/L (3.5-5.1) Chloride Level 107 mmol/L (98-107) Carbon Dioxide Level 26 mmol/L (21-32) Anion Gap 7 (6-14) Blood Urea Nitrogen 10 mg/dL (8-26) Creatinine 0.7 mg/dL (0.7-1.3) Estimated GFR (Cockcroft-Gault) 117.5 Glucose Level 95 mg/dL (70-99) Calcium Level 7.7 mg/dL (8.5-10.1) Brief Hospital Course Mr. Jose is a 56 old [sex] who presented with [ ]55 y.o male with no signif past medical, 4-5 day hx rectal pain, no drainage, admits to constipation. Rectal abscess on PE and on CT. GS consulted, planned for drainage , AHs been taking amox (i thought initially for rectal but now notes about dental implant),. Got unasyn at ER, reviewed lit, can do unasyn, flagyl, clinda are some options, Denies fever. NOrmal white ct K slightly low at 3.3 COurse: Underwent I an D by GS, left with a packing and to heal by secondary intention, Hypokalemia corrected, REady for home Discharge Information Condition at Discharge: Improved, Stable Disposition/Orders: D/C to Home Scheduled Amoxicillin (Amoxicillin), 1 CAP PO BID, (Reported) Lisinopril (Lisinopril), 1 TAB PO DAILY, (Reported) Metoprolol Tartrate (Metoprolol Tartrate), 1 TAB PO BID, (Reported) Scheduled PRN Ondansetron (Ondansetron Odt), 8 MG PO TID PRN for NAUSEA/VOMITING, (Reported) PRESTON PHELAN MD Feb 28, 2017 12:04
--- NOTE | 2017-02-28 12:49 | PDOC ---
SURGICAL PROGRESS NOTE Subjective Pt with c/o soreness, but otherwise doing well, ready for d/c Vital Signs Vital Signs Date Time Temp Pulse Resp B/P (MAP) Pulse Ox O2 Delivery O2 Flow Rate FiO2 02/28/17 11:00 98.1 77 19 127/82 (97) 98 Room Air 98.1 02/27/17 15:26 2.0 I&O Intake and Output 02/28/17 07:00 Intake Total 2200 ml Balance 2200 ml Intake Oral 800 ml IV Total 1400 ml # Voids 4 General: Alert, Oriented X3, Cooperative, No acute distress Skin: Other (min induration, packing in place with serosang d/c) Labs Laboratory Tests Test 02/27/17 05:45 02/28/17 05:44 White Blood Count 7.8 x10^3/uL (4.0-11.0) 7.1 x10^3/uL (4.0-11.0) Red Blood Count 4.57 x10^6/uL (4.30-5.70) 4.06 x10^6/uL (4.30-5.70) Hemoglobin 16.3 g/dL (13.0-17.5) 14.6 g/dL (13.0-17.5) Hematocrit 45.9 % (39.0-53.0) 41.0 % (39.0-53.0) Mean Corpuscular Volume 100 fL (79-100) 101 fL (79-100) Mean Corpuscular Hemoglobin 36 pg (25-35) 36 pg (25-35) Mean Corpuscular Hemoglobin Concent 35 g/dL (31-37) 36 g/dL (31-37) Red Cell Distribution Width 13.5 % (11.5-14.5) 13.4 % (11.5-14.5) Platelet Count 186 x10^3/uL (140-400) 156 x10^3/uL (140-400) Neutrophils (%) (Auto) 72 % (31-73) 75 % (31-73) Lymphocytes (%) (Auto) 16 % (24-48) 14 % (24-48) Monocytes (%) (Auto) 10 % (0-9) 10 % (0-9) Eosinophils (%) (Auto) 1 % (0-3) 1 % (0-3) Basophils (%) (Auto) 1 % (0-3) 1 % (0-3) Neutrophils # (Auto) 5.6 x10^3uL (1.8-7.7) 5.4 x10^3uL (1.8-7.7) Lymphocytes # (Auto) 1.2 x10^3/uL (1.0-4.8) 1.0 x10^3/uL (1.0-4.8) Monocytes # (Auto) 0.8 x10^3/uL (0.0-1.1) 0.7 x10^3/uL (0.0-1.1) Eosinophils # (Auto) 0.1 x10^3/uL (0.0-0.7) 0.1 x10^3/uL (0.0-0.7) Basophils # (Auto) 0.1 x10^3/uL (0.0-0.2) 0.0 x10^3/uL (0.0-0.2) Sodium Level 139 mmol/L (136-145) 140 mmol/L (136-145) Potassium Level 3.3 mmol/L (3.5-5.1) 4.1 mmol/L (3.5-5.1) Chloride Level 100 mmol/L (98-107) 107 mmol/L (98-107) Carbon Dioxide Level 27 mmol/L (21-32) 26 mmol/L (21-32) Anion Gap 12 (6-14) 7 (6-14) Blood Urea Nitrogen 15 mg/dL (8-26) 10 mg/dL (8-26) Creatinine 1.0 mg/dL (0.7-1.3) 0.7 mg/dL (0.7-1.3) Estimated GFR (Cockcroft-Gault) 78.2 117.5 BUN/Creatinine Ratio 15 (6-20) Glucose Level 110 mg/dL (70-99) 95 mg/dL (70-99) Lactic Acid Level 1.8 mmol/L (0.4-2.0) Calcium Level 9.4 mg/dL (8.5-10.1) 7.7 mg/dL (8.5-10.1) Total Bilirubin 0.8 mg/dL (0.2-1.0) Aspartate Amino Transf (AST/SGOT) 28 U/L (15-37) Alanine Aminotransferase (ALT/SGPT) 43 U/L (16-63) Alkaline Phosphatase 90 U/L (46-116) Total Protein 7.7 g/dL (6.4-8.2) Albumin 3.8 g/dL (3.4-5.0) Albumin/Globulin Ratio 1.0 (1.0-1.7) Laboratory Tests Test 02/28/17 05:44 White Blood Count 7.1 x10^3/uL (4.0-11.0) Red Blood Count 4.06 x10^6/uL (4.30-5.70) Hemoglobin 14.6 g/dL (13.0-17.5) Hematocrit 41.0 % (39.0-53.0) Mean Corpuscular Volume 101 fL (79-100) Mean Corpuscular Hemoglobin 36 pg (25-35) Mean Corpuscular Hemoglobin Concent 36 g/dL (31-37) Red Cell Distribution Width 13.4 % (11.5-14.5) Platelet Count 156 x10^3/uL (140-400) Neutrophils (%) (Auto) 75 % (31-73) Lymphocytes (%) (Auto) 14 % (24-48) Monocytes (%) (Auto) 10 % (0-9) Eosinophils (%) (Auto) 1 % (0-3) Basophils (%) (Auto) 1 % (0-3) Neutrophils # (Auto) 5.4 x10^3uL (1.8-7.7) Lymphocytes # (Auto) 1.0 x10^3/uL (1.0-4.8) Monocytes # (Auto) 0.7 x10^3/uL (0.0-1.1) Eosinophils # (Auto) 0.1 x10^3/uL (0.0-0.7) Basophils # (Auto) 0.0 x10^3/uL (0.0-0.2) Sodium Level 140 mmol/L (136-145) Potassium Level 4.1 mmol/L (3.5-5.1) Chloride Level 107 mmol/L (98-107) Carbon Dioxide Level 26 mmol/L (21-32) Anion Gap 7 (6-14) Blood Urea Nitrogen 10 mg/dL (8-26) Creatinine 0.7 mg/dL (0.7-1.3) Estimated GFR (Cockcroft-Gault) 117.5 Glucose Level 95 mg/dL (70-99) Calcium Level 7.7 mg/dL (8.5-10.1) Problem List s/p I and D OK to d/c f/u with Dr. Ventura this week for dressing change Problems: WERO HER MD Feb 28, 2017 12:49
--- NOTE | 2017-03-02 16:51 | OP ---
DATE OF SURGERY: 02/27/2017 PREOPERATIVE DIAGNOSIS: Perirectal abscess. POSTOPERATIVE DIAGNOSIS: Perirectal abscess. PROCEDURE: Incision and drainage. SURGEON: Yael Corbin MD ANESTHESIA: General LMA. ESTIMATED BLOOD LOSS: 10 mL. IV FLUIDS: 400. INDICATIONS: The patient is a 56-year-old with pain and swelling in the right perianal area. CT scan is consistent with a perirectal abscess. He is brought for incision and drainage. DESCRIPTION OF PROCEDURE: The patient brought to the operating suite, given a general LMA and placed in the dorsal lithotomy position. The perianal area was prepped and draped in usual sterile fashion. With the patient under anesthesia, the area of induration was easily felt at 9 o'clock. This was incised and immediately yielded purulent drainage. The cavity was digitally explored to break up loculations. It was cultured. Wound was irrigated and checked for hemostasis. It was present and a correct sponge count was obtained, the wound was packed loosely with 1/2-inch plain Nu Gauze. Sterile dressing applied. The patient taken out of the lithotomy position, awakened from his anesthetic and taken to the recovery room in satisfactory condition. YAEL CORBIN MD DR: TOÑO/lex JOB#: [id number] / [id number]
== END 2017-02-28 13:52 | disposition home or self-care (01) | DRG 346 ==
LOC: ER 04:52 → 6 SOUTH 06:17 → EDBD 06:17 → 6 SOUTH 07:20 → OBSVTOIN 12:41
PROVIDERS: ADMIT Internal Medicine; ATTEND Internal Medicine
PROC: 0D9P0ZZ Drainage of Rectum, Open Approach (ICD-10-PCS; principal; 2017-02-27 13:00)
DX: K61.1 Rectal abscess (principal); E87.6 Hypokalemia; I10 Essential (primary) hypertension; Z82.49 Family history of ischemic heart disease and other diseases of the circulatory system; Z91.010 Allergy to peanuts
CPT/HCPCS: 36415; 74177; 80048; 80053; 83605; 85025; 85027; 87040; 87205; 96365; 96375; G0378; G0379; J0295; J1100; J1170; J2250; J2405; J2704; J3010; J3480; J7030; Q9967; 99285-25; J2001